=== PATIENT | male | born 1975 | race Caucasian/White ===

== ENCOUNTER → 2017-10-28 | Outpatient (CLI) | payer BC ==
--- NOTE | 2017-10-28 13:17 | EST ---
EXERCISE STRESS AGE: 42 SEX: M HT: 68" WT: 190 PROTOCOL: Vivek Stress Test STAGE: III DURATION OF EXERCISE: 11:30 HEART RATE REST: 69 BLOOD PRESSURE REST: 147/100 MAXIMUM HEART RATE ACHIEVED: 153. MAXIMUM BLOOD PRESSURE: 205/76 85% MPHR: 151 100% MPHR: 178 METS: 13 INDICATIONS: Chest pain. CLINICAL INFORMATION: Baseline EKG shows sinus rhythm, normal axis, normal intervals. Patient exercised on Vivek protocol for a total of 11.5 minutes achieving 13 METS, 85% of predicted maximal heart rate without chest pain or diagnostic ST-segment depression. CONCLUSION: 1. Good exercise tolerance. 2. Negative stress test by EKG criteria. MMODL / IJN: [id number] /
== END ==
LOC: RADNMMAIN 10-25 10:54
PROVIDERS: ATTEND Family Medicine
DX: R07.9 Chest pain, unspecified (principal); I10 Essential (primary) hypertension
CPT/HCPCS: 93017

== ENCOUNTER → 2021-02-03 | Outpatient (CLI) | payer BC ==
--- NOTE | 2021-02-03 17:23 | XR ---
EXAMINATION TYPE: XR knee complete bilateral DATE OF EXAM: 02/03/2021 COMPARISON: NONE HISTORY: 46-year-old male [id number]. Chronic pain inferior patella bilaterally TECHNIQUE: 3 views each side FINDINGS: No joint effusion on either side. Extensor mechanisms appear intact. No acute fracture, subluxation, or dislocation. IMPRESSION: No acute osseous abnormality seen. If symptoms persist, consider MRI.
== END | disposition home or self-care (01) ==
LOC: RADXRYALE 15:06
PROVIDERS: ATTEND Physician Assistant
DX: G89.29 Other chronic pain (principal); M25.561 Pain in right knee; M25.562 Pain in left knee

== ENCOUNTER → 2024-03-06 | Outpatient (CLI) | payer BC ==
--- NOTE | 2024-03-06 16:07 | XR ---
Right knee HISTORY: Knee pain COMPARISON: 02/03/2021. TECHNIQUE: 3 views right knee were obtained. FINDINGS: There is no fracture, dislocation, intraosseous or intra-articular abnormality. There are no soft tis andrew abnormalities. IMPRESSION: No significant abnormality seen.
== END | disposition home or self-care (01) ==
LOC: RADXRYALE 14:35
PROVIDERS: ATTEND Physician Assistant
DX: M25.561 Pain in right knee (principal)